=== PATIENT | female | born 1960 ===

== ENCOUNTER 2018-05-16 12:17 | Outpatient (CLI) | payer OTHER | END 2018-05-16 12:18 | disposition home or self-care (01) | LOC: C.MAMMO 12:17 ==

== ENCOUNTER 2018-06-05 15:33 | Outpatient (CLI) | payer OTHER | END 2018-06-05 15:34 | disposition home or self-care (01) | LOC: C.MRIC 15:33 | DX: M25.511 Pain in right shoulder (principal) ==